=== PATIENT | male | born 1970 | race Caucasian/White ===

== ENCOUNTER 2021-04-20 20:06 | Emergency (ER) | payer OTHER ==
[2021-04-20] MEDS ORDERED: ONDANSETRON 4 MG/2 ML VIAL IVPUSH ONE (20:20)
[2021-04-20] MEDS ORDERED: SODIUM CHLORIDE 0.9% 500 ML INFUS.BAG IV ONE (20:20)
[2021-04-20 20:26] VITALS: TEMP 97.3; BMI 20.3
[2021-04-20] MEDS ORDERED: ASPIRIN 81 MG CHEWABLE TABLETS PO ONE (20:28)
[2021-04-20] MEDS ORDERED: ONDANSETRON 4 MG/2 ML VIAL ONE (20:29)
[2021-04-20 21:02] LABS: BASO % 0.5 % (0-2.0); EOS % 0.3 % (0-4.5); HEMATOCRIT 51.8 % (35.4-49); HEMOGLOBIN 17.6 GM/dL (11.7-16.9); LYMPH % 9.5 % (8-40); MEAN PLT VOLUME 9.9 fl (7.5-11.1); MONO % 5.2 % (3.8-10.2); NEUT % 84.5 % (42.8-82.8); PLATELET COUNT 153 10^3/uL (134-434); RBC 5.18 M/mm3 (4.00-5.60); RDW 13.4 % (11.9-15.9); WHITE BLOOD COUNT 18.6 K/mm3 (4.0-10.0)
[2021-04-20] MEDS ORDERED: FAMOTIDINE 20 MG/50 ML IVPB 20 MG/50 ML MG IVPB ONE ×2 (21:05→21:31)
[2021-04-20] MEDS ORDERED: LORazepam 1 MG TABLET PO ONE (21:05)
[2021-04-20] MEDS ORDERED: ACETAMINOPHEN 1000 MG/100 ML VIAL (NON FORMULARY) IVPB ONE (21:05)
[2021-04-20] MEDS ORDERED: SODIUM CHLORIDE 1,000 ML IV STA (21:06)
[2021-04-20 21:24] LABS: CHLORIDE 102 mmol/L (98-107); SODIUM 143 mmol/L (136-145)
[2021-04-20 21:25] LABS: CALCIUM 9.6 mg/dL (8.5-10.1); MAGNESIUM 2.4 mg/dL (1.8-2.4)
[2021-04-20 21:26] LABS: ALBUMIN 4.4 g/dl (3.4-5.0); ANION GAP 10 MMOL/L (8-16); BLOOD UREA NITROGEN 17.2 mg/dL (7-18); CO2 32 mmol/L (21-32); GLUCOSE,RANDOM 93 mg/dL (74-106)
[2021-04-20] MEDS ORDERED: ACETAMINOPHEN INJECTION 100 ML IVPB ONE (21:28)
[2021-04-20] MEDS ORDERED: LORazepam 1 MG TABLET ONE (21:28)
[2021-04-20 21:29] LABS: CREATININE 1.2 mg/dL (0.55-1.3); SGOT/AST 24 U/L (15-37); SGPT/ALT 37 U/L (13-61)
[2021-04-20 21:30] LABS: BILIRUBIN,TOTAL 0.7 mg/dL (0.2-1); TOT PROT 7.7 g/dl (6.4-8.2)
[2021-04-20 21:31] LABS: ALK PHOS 110 U/L (45-117)
[2021-04-20 21:32] LABS: LDH 217 U/L (87-246)
[2021-04-20] MEDS ORDERED: amLODIPine BESYLATE 10 MG TABLET (FP) PO ONE (22:52)
[2021-04-20] MEDS ORDERED: IBUPROFEN 600 MG TABLET (FP) PO ONE ×2 (23:07→23:10)
[2021-04-20 23:09] VITALS: BP 163/100; PULSE 50
[2021-04-20] MEDS ORDERED: amLODIPine BESYLATE 5 MG TABLET (FP) ONE (23:10)
== END 2021-04-21 01:48 | disposition home or self-care (01) ==
LOC: JER 20:06
PROC: 3E033NZ Introduction of Analgesics, Hypnotics, Sedatives into Peripheral Vein, Percutaneous Approach (ICD-10-PCS; principal; 2021-04-20)
PROC: 3E033GC Introduction of Other Therapeutic Substance into Peripheral Vein, Percutaneous Approach (ICD-10-PCS; 2021-04-20)
PROC: 3E0337Z Introduction of Electrolytic and Water Balance Substance into Peripheral Vein, Percutaneous Approach (ICD-10-PCS; 2021-04-20)
DX: R06.02 Shortness of breath (principal); F19.10 Other psychoactive substance abuse, uncomplicated; R07.9 Chest pain, unspecified
CPT/HCPCS: 36415; 71045-TC-FY; 71046-TC-FY; 80053; 82550; 82553; 82728; 83615; 83690; 83735; 84484; 85025; 93005; 93010; 99285-25; C9803; J0131; U0003; U0005